=== PATIENT | female | born 1960 | race Caucasian/White ===

== ENCOUNTER → 2018-10-06 | Outpatient (CLI) | payer BC, MEDICARE ==
--- NOTE | 2018-10-06 21:12 | CRLCT ---
INDICATION: Followup pulmonary nodules. TECHNIQUE: Noncontrast axial images with sagittal and coronal reconstructions. COMPARISON: 04/12/2018. FINDINGS: Lungs: Minimal biapical scarring and paraseptal type emphysema. There are a few small (less than 6 mm average diameter) noncalcified subpleural and fissural pulmonary nodules which are stable. These are seen in the right lung on axial images 21, 43, 53, 58, and 70. A stable noncalcified pulmonary nodule is also seen in the left lung on axial image 48, which measures 4 mm. There are no new or enlarging pulmonary nodules. Remainder of the chest: Normal heart size. No pericardial effusion. Normal caliber thoracic aorta. No lymphadenopathy by size criteria. Upper abdomen: No acute abnormality. Bones: No acute abnormality. IMPRESSION: Stable small (less than 6 mm) pulmonary nodules as described above. No new or enlarging pulmonary nodules. Please note that all CT scans at this facility use dose modulation, iterative reconstruction, and/or weight-based dosing when appropriate to reduce radiation dose to as low as reasonably achievable. Dictated by Panda Farias MD @ Oct 06 2018 9:10PM Signed by Dr. Panda Farias @ Oct 06 2018 9:10PM
== END | disposition home or self-care (01) ==
LOC: JP.CT 10:07
PROVIDERS: ATTEND Family Medicine
DX: Z09 Encounter for follow-up examination after completed treatment for conditions other than malignant neoplasm (principal); R91.8 Other nonspecific abnormal finding of lung field; Z87.891 Personal history of nicotine dependence
CPT/HCPCS: 71250

== ENCOUNTER 2018-10-19 21:34 | Emergency (ER) | payer BC, MEDICARE ==
[2018-10-19 23:05] VITALS: BP 135/71
[2018-10-19] MEDS ORDERED: cefTRIAXone 1 GM, Lidocaine 1% 2.1 ML IM ONE ×2 (23:49)
--- NOTE | 2018-10-19 23:49 | EDM.PDOC ---
ED HPI GENERAL MEDICAL PROBLEM - General Chief Complaint: ENT Problem Stated Complaint: ILLNESS Time Seen by Provider: 10/19/18 23:49 Source of Information: Reports: Patient History Limitations: Reports: No Limitations - History of Present Illness INITIAL COMMENTS - FREE TEXT/NARRATIVE: pt arrived with a fever and a sore throat. She has been ill for 32 days. Onset: Other ( 2 days ago) Duration: Hour(s): Location: Reports: Neck Associated Symptoms: Reports: Fever/Chills, Loss of Appetite, Other ( body aches ) Generalized Pain Score (Numeric/FACES): 7 - Related Data Allergies Allergy/AdvReac Type Severity Reaction Status Date / Time phenytoin sodium Allergy Dizziness Verified 10/19/18 23:15 [From Dilantin] phenytoin sodium extended Allergy Dizziness Verified 10/19/18 23:15 [From Dilantin] silver sulfadiazine Allergy Pain Verified 10/19/18 23:15 [From Silvadene] Sulfa (Sulfonamide Allergy Rash Verified 10/19/18 23:15 Antibiotics) leelee Allergy Pain Uncoded 10/19/18 23:15 Home Meds: Home Meds Acetaminophen with Codeine [Acetaminophen-Cod #3] 1 each PO Q4HR PRN 03/11/13 [ History] Ascorbic Acid [C-1000] 1,000 mg PO DAILY 03/11/13 [History] Aspirin [Aspirin EC] 650 mg PO Q4HR PRN 03/11/13 [History] Calcium Carbonate- Vitamin D 1 tab PO DAILY 03/11/13 [History] Ibuprofen [Motrin] 800 mg PO TID PRN 03/11/13 [History] Loratadine [Claritin] 10 mg PO DAILY 03/11/13 [History] Methocarbamol [Robaxin] 500 mg PO Q12HR PRN 03/11/13 [History] Phenylephrine HCl [Non-Pseudo Sinus Decongestant] 10 mg PO DAILY PRN 03/11/13 [ History] buPROPion HCl [Wellbutrin Sr] 150 mg PO BID 03/11/13 [History] guaiFENesin [Guaifenesin] 400 mg PO DAILY PRN 03/11/13 [History] Docusate Sodium [Colace] 100 mg PO ASDIRECTED PRN 01/13/14 [History] Vitamin B Complex [B Complex] 1 tab PO DAILY 10/19/18 [History] Past Medical History HEENT History: Reports: Impaired Vision Cardiovascular History: Reports: Other (See Below) Other Cardiovascular History: mitral valve prolapse 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: lump ectomy left breast Musculoskeletal History: Reports: Back Pain, Chronic, Fracture, Other (See Below ) Other Musculoskeletal History: rods in low back - Infectious Disease History Infectious Disease History: Reports: C-Difficile, Measles, Mumps - Past Surgical History Female Surgical History: Reports: Section, Hysterectomy Social & Family History - Family History Family Medical History: Noncontributory - Tobacco Use Smoking Status *Q: Never Smoker - Caffeine Use Caffeine Use: Reports: Coffee - Recreational Drug Use Recreational Drug Use: No ED ROS ENT - Review of Systems Review Of Systems: See Below Constitutional: Reports: Fever, Chills HEENT: Reports: Throat Pain, Throat Swelling Respiratory: Reports: No Symptoms Cardiovascular: Reports: No Symptoms Endocrine: Reports: No Symptoms GI/Abdominal: Reports: No Symptoms ED EXAM, ENT - Physical Exam Exam: See Below Text/Narrative:: Pt arrived with a sore throat and a fever. She has been ill for 2 days. Exam Limited By: No Limitations General Appearance: Alert, Anxious, Moderate Distress Ears: Normal TMs Nose: Normal Inspection Mouth/Throat: Other ( red inflamed) Head: Atraumatic Neck: Lymphadenopathy (R), Lymphadenopathy (L) Respiratory/Chest: No Respiratory Distress Cardiovascular: Regular Rate, Rhythm GI/Abdominal: Soft, Non-Tender Course - Vital Signs Last Recorded V/S: Last Vital Signs Temp 38.6 C H 10/19/18 23:04 Pulse 105 H 10/19/18 23:04 Resp 18 10/19/18 23:04 BP 135/71 10/19/18 23:04 Pulse Ox 95 10/19/18 23:04 - Orders/Labs/Meds Meds: Medications Discontinued Medications Generic Name Dose Route Start Last Admin Trade Name Declanq PRN Reason Stop Dose Admin Ceftriaxone Sodium 1 gm/ 0 gm 10/19/18 23:49 10/19/18 23:54 Lidocaine HCl 2.1 ml IM 10/19/18 23:50 1 inj ONETIME ONE Administration - Re-Assessments/Exams Free Text/Narrative Re-Assessment/Exam: 10/19/18 23:59 pt arrived with a sore throat looking quite ill. Pt was given rocephen 1 gm. Departure - Departure Time of Disposition: 23:50 Disposition: Home, Self-Care 01 Condition: Fair Clinical Impression: Streptococcal pharyngitis - Discharge Information Instructions: Pharyngitis, [id number] Referrals: Freddie Bartlett MD [Primary Care Provider] - Forms: ED Department Discharge Care Plan Goals: push fluids, tylenol and motrin for body aches, amoxicillin 500mg tid for 10 days.
== END 2018-10-20 00:15 | disposition home or self-care (01) ==
LOC: JP.ED 21:34
DX: J02.0 Streptococcal pharyngitis (principal); H54.7 Unspecified visual loss; I34.1 Nonrheumatic mitral (valve) prolapse; M54.9 Dorsalgia, unspecified; G89.29 Other chronic pain; Z79.82 Long term (current) use of aspirin; Z79.899 Other long term (current) drug therapy; Z88.2 Allergy status to sulfonamides; Z91.09 Other allergy status, other than to drugs and biological substances
CPT/HCPCS: 87430; 96372; 99283; J0696; J2001

== ENCOUNTER 2021-02-09 19:13 | Emergency (ER) | payer BC ==
--- NOTE | 2021-02-09 21:42 | EDM.PDOC ---
ED HPI GENERAL MEDICAL PROBLEM - General Chief Complaint: General Stated Complaint: ACHES,COUGH, LOW GRADE TEMP,CONGESTION Time Seen by Provider: 02/09/21 20:22 Source of Information: Reports: Patient History Limitations: Reports: No Limitations - History of Present Illness INITIAL COMMENTS - FREE TEXT/NARRATIVE: Presents emergency room today secondary to symptoms of body aches cough fatigue fevers and chills mild headache stuffy nose and sore throat. She states that her temperature today was 100.3 and has been running about that last several days symptoms started on Thursday she has been using Tylenol and cold and cough medication [id number] PMH--depression, chronic pain Meds--wellbutrin, ibuprofen prn, T-3 prn, methocarbonal prn, MVI, vit D Allergies--dilantin, sulfa, amtriptylin Denies tob/etoh/drug use No known COVID illness nor has she received the COVID immunization Generalized Pain Score (Numeric/FACES): 5 - Related Data Allergies Allergy/AdvReac Type Severity Reaction Status Date / Time phenytoin sodium Allergy Dizziness Verified 10/19/18 23:15 [From Dilantin] phenytoin sodium extended Allergy Dizziness Verified 10/19/18 23:15 [From Dilantin] silver sulfadiazine Allergy Pain Verified 10/19/18 23:15 [From Silvadene] Sulfa (Sulfonamide Allergy Rash Verified 10/19/18 23:15 Antibiotics) leelee Allergy Pain Uncoded 10/19/18 23:15 Home Meds: Home Meds Acetaminophen with Codeine [Acetaminophen-Cod #3] 1 each PO Q4HR PRN 03/11/13 [History] Ascorbic Acid [C-1000] 1,000 mg PO DAILY 03/11/13 [History] Aspirin [Aspirin EC] 650 mg PO Q4HR PRN 03/11/13 [History] Calcium Carbonate- Vitamin D 1 tab PO DAILY 03/11/13 [History] Ibuprofen [Motrin] 800 mg PO TID PRN 03/11/13 [History] Loratadine [Claritin] 10 mg PO DAILY 03/11/13 [History] Phenylephrine HCl [Non-Pseudo Sinus Decongestant] 10 mg PO DAILY PRN 03/11/13 [History] buPROPion HCL [Wellbutrin Sr] 150 mg PO BID 03/11/13 [History] guaiFENesin [Guaifenesin] 400 mg PO DAILY PRN 03/11/13 [History] methocarbamoL [Robaxin] 500 mg PO Q12HR PRN 03/11/13 [History] Docusate Sodium [Colace] 100 mg PO ASDIRECTED PRN 01/13/14 [History] Vitamin B Complex [B Complex] 1 tab PO DAILY 10/19/18 [History] Past Medical History HEENT History: Reports: Impaired Vision Cardiovascular History: Reports: Other (See Below) Other Cardiovascular History: mitral valve prolapse 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: lump ectomy left breast Musculoskeletal History: Reports: Back Pain, Chronic, Fracture, Other (See Below) Other Musculoskeletal History: rods in low back - Infectious Disease History Infectious Disease History: Reports: C-Difficile, Measles, Mumps - Past Surgical History Female Surgical History: Reports: Section, Hysterectomy Social & Family History - Family History Family Medical History: No Pertinent Family History - Tobacco Use Tobacco Use Status *Q: Never Tobacco User - Caffeine Use Caffeine Use: Reports: Coffee, Soda, Tea ED ROS GENERAL - Review of Systems Review Of Systems: Comprehensive ROS is negative, except as noted in HPI. Constitutional: Reports: Fever, Chills, Fatigue, Decreased Appetite HEENT: Reports: Rhinitis, Sinus Problem, Throat Pain Respiratory: Reports: Cough Cardiovascular: Reports: No Symptoms GI/Abdominal: Reports: No Symptoms ED EXAM, GENERAL - Physical Exam Exam: See Below Exam Limited By: No Limitations General Appearance: Alert, WD/WN, No Apparent Distress Eye Exam: Bilateral Eye: EOMI, Normal Inspection, PERRL Ears: Normal External Exam, Normal Canal, Hearing Grossly Normal Nose: Normal Inspection Throat/Mouth: Normal Inspection, Normal Lips, Normal Oropharynx, Normal Voice, No Airway Compromise Head: Atraumatic, Normocephalic Neck: Normal Inspection, Supple, Non-Tender, Full Range of Motion Respiratory/Chest: No Respiratory Distress, Lungs Clear, Normal Breath Sounds Cardiovascular: Normal Peripheral Pulses, Regular Rate, Rhythm, No Edema, No Murmur Peripheral Pulses: 2+: Radial (L), Radial (R) GI/Abdominal: Normal Bowel Sounds, Soft, Non-Tender (Female) Exam: Deferred Rectal (Female) Exam: Deferred Back Exam: Normal Inspection, Full Range of Motion Extremities: Normal Inspection, Normal Range of Motion, Normal Capillary Refill Neurological: Alert, Oriented, Normal Cognition, No Motor/Sensory Deficits Psychiatric: Normal Affect, Normal Mood Skin Exam: Warm, Dry, Intact, Normal Color Course - Vital Signs Text/Narrative:: 2199--received call from lab regarding + COVID result 2214--in room to discuss with patient and spouse at bedside days ER findings. Patient with diagnosis of Covid without any hypoxia or symptoms of concern requiring admission at this time. Did discuss with patient 10 to 14-day home quarantine self-isolation. Also did discuss contact tracing that anybody that she has been in close contact with will need to be on home quarantine self- isolation for the next 5 to 7 days after last contact and then may receive testing for clearance. Will discharge with antiemetic also did discuss with her use of ibuprofen and acetaminophen for any fevers chills body aches or discomfort. And recommendation to ensure that she is drinking plenty of fluids. Patient verbalized understanding agree with plan of care ready for discharge Last Recorded V/S: Last Vital Signs Temp 97.3 F 02/09/21 20:01 Pulse 94 02/09/21 22:26 Resp 20 02/09/21 22:26 BP 143/82 H 02/09/21 22:26 Pulse Ox 96 02/09/21 22:26 - Orders/Labs/Meds Orders: Active Orders 24 hr Category Date Time Status CULTURE STREP A CONFIRMATION [RM] Stat Lab 02/09/21 21:05 Results STREP SCRN A RAPID W CULT CONF [RM] Stat Lab 02/09/21 21:05 Results Isolation [COMM] Routine Oth 02/09/21 20:39 Ordered Labs: Laboratory Tests 02/09/21 Range/Units 21:05 SARS-CoV-2 RNA (RUSTY) Positive H (NEGATIVE) Departure - Departure Time of Disposition: 22:54 Disposition: Home, Self-Care 01 Condition: Good Clinical Impression: COVID-19 - Discharge Information *PRESCRIPTION DRUG MONITORING PROGRAM REVIEWED*: Not Applicable *COPY OF PRESCRIPTION DRUG MONITORING REPORT IN PATIENT MGAI: Not Applicable Instructions: How to Wear and Take Off Your Mask - [facility] [place] (08/23/2020), 10 Things You Can Do to Manage Your COVID-19 Symptoms at Home - [facility] [place] (11/23/2019), COVID-19 Frequently Asked Questions Referrals: Freddie Bartlett MD [Primary Care Provider] - Forms: ED Department Discharge Additional Instructions: Ensure that you are drinking plenty of fluidswater, juices, sports drinks of choice to stay well-hydrated other options include soup, Jell-O, and popsicles. When you are feeling better your appetite will return Provided you a prescription for ondansetron (Zofran) to use as labeled for any nausea or vomiting. Additional medications for symptom management include acetaminophen (Tylenol) and/or B Profen (Motrin, Advil) use as per [id number] label Contact your primary care provider via telephone for any further concerns. Do not go into the clinic without first contacting them to notify of your Covid diagnosis. If you should have worsening symptoms then please return to the emergency room for further evaluation Note that you are on a 10 to 14-day home quarantine/self isolation. You should not go out to any public places nor should you have anybody into your home secondary to having a Covid positive diagnosis as per current public health guidelines. It is recommended that anybody that you have had close contact with in the last week should be notified of your Covid diagnosis in 5 to 7 days after your last contact with him be tested for Covid. Would have to remain in isolation home quarantine until they have met that timeframe in order to have proper Covid testing to rule out infection Sepsis Event Note (ED) - Evaluation Sepsis Screening Result: No Definite Risk - Focused Exam Vital Signs: Vital Signs Temp Pulse Resp BP Pulse Ox 02/09/21 22:26 94 20 143/82 H 96 02/09/21 20:01 97.3 F 80 20 151/93 H 98 - My Orders Last 24 Hours: My Active Orders 02/09/21 20:39 Isolation [COMM] Routine 02/09/21 21:05 CULTURE STREP A CONFIRMATION [RM] Stat STREP SCRN A RAPID W CULT CONF [RM] Stat - Assessment/Plan Last 24 Hours: My Active Orders 02/09/21 20:39 Isolation [COMM] Routine 02/09/21 21:05 CULTURE STREP A CONFIRMATION [RM] Stat STREP SCRN A RAPID W CULT CONF [RM] Stat
[2021-02-09 22:27] VITALS: BP 143/82; PULSE 94
== END 2021-02-09 23:09 | disposition home or self-care (01) ==
LOC: JP.ED 19:13
DX: U07.1 COVID-19 (principal); Z88.2 Allergy status to sulfonamides; Z88.8 Allergy status to other drugs, medicaments and biological substances; Z79.82 Long term (current) use of aspirin
CPT/HCPCS: 87081; 87804; 87804-59; 87880-QW; 99283; U0002

== ENCOUNTER 2021-02-12 11:46 | Emergency (ER) | payer BC ==
--- NOTE | 2021-02-12 13:40 | EDM.PDOC ---
ED HPI GENERAL MEDICAL PROBLEM - General Chief Complaint: General Stated Complaint: COVID POS-NOT GETTING BETTER Time Seen by Provider: 02/12/21 13:40 Source of Information: Reports: Patient, Family History Limitations: Reports: No Limitations - History of Present Illness INITIAL COMMENTS - FREE TEXT/NARRATIVE: pt has covid for the second time. She has been ill for 4-5 days. She is coughing. She does have the sensation of sob. Her o2 sats are in the 94 to 95 range. Onset: Gradual, Other (last 4-5 days. ) Duration: Hour(s): Location: Reports: Chest, Generalized, Other (pt feels the body aches is better today. ) Associated Symptoms: Reports: Loss of Appetite, Malaise, Shortness of Breath, Other (o2 sats are good. ) - Related Data Allergies Allergy/AdvReac Type Severity Reaction Status Date / Time phenytoin sodium Allergy Dizziness Verified 02/12/21 11:53 [From Dilantin] phenytoin sodium extended Allergy Dizziness Verified 02/12/21 11:53 [From Dilantin] silver sulfadiazine Allergy Pain Verified 02/12/21 11:53 [From Silvadene] Sulfa (Sulfonamide Allergy Rash Verified 02/12/21 11:53 Antibiotics) leelee Allergy Pain Uncoded 02/12/21 11:53 Home Meds: Home Meds Acetaminophen with Codeine [Acetaminophen-Cod #3] 1 each PO Q4HR PRN 03/11/13 [History] Ascorbic Acid [C-1000] 1,000 mg PO DAILY 03/11/13 [History] Aspirin [Aspirin EC] 650 mg PO Q4HR PRN 03/11/13 [History] Calcium Carbonate- Vitamin D 1 tab PO DAILY 03/11/13 [History] Ibuprofen [Motrin] 800 mg PO TID PRN 03/11/13 [History] Loratadine [Claritin] 10 mg PO DAILY 03/11/13 [History] Phenylephrine HCl [Non-Pseudo Sinus Decongestant] 10 mg PO DAILY PRN 03/11/13 [History] buPROPion HCL [Wellbutrin Sr] 150 mg PO BID 03/11/13 [History] guaiFENesin [Guaifenesin] 400 mg PO DAILY PRN 03/11/13 [History] methocarbamoL [Robaxin] 500 mg PO Q12HR PRN 03/11/13 [History] Docusate Sodium [Colace] 100 mg PO ASDIRECTED PRN 01/13/14 [History] Vitamin B Complex [B Complex] 1 tab PO DAILY 10/19/18 [History] Past Medical History HEENT History: Reports: Impaired Vision Cardiovascular History: Reports: Other (See Below) Other Cardiovascular History: mitral valve prolapse 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 Musculoskeletal History: Reports: Back Pain, Chronic, Fracture, Other (See Below) Other Musculoskeletal History: rods in low back - Infectious Disease History Infectious Disease History: Reports: C-Difficile, Measles, Mumps, Novel Coronavirus - Past Surgical History Female Surgical History: Reports: Section, Hysterectomy Social & Family History - Family History Family Medical History: No Pertinent Family History - Tobacco Use Tobacco Use Status *Q: Former Tobacco User Used Tobacco, but Quit: Yes Month/Year Tobacco Last Used: 15 years - Caffeine Use Caffeine Use: Reports: Coffee, Soda - Recreational Drug Use Recreational Drug Use: No ED ROS GENERAL - Review of Systems Review Of Systems: See Below Constitutional: Reports: Malaise, Decreased Appetite HEENT: Reports: No Symptoms Respiratory: Reports: Shortness of Breath, Other (pt has o2 sats in the 94-6) Cardiovascular: Reports: No Symptoms (range) Endocrine: Reports: No Symptoms GI/Abdominal: Reports: No Symptoms : Reports: No Symptoms Musculoskeletal: Reports: No Symptoms Skin: Reports: No Symptoms Neurological: Reports: No Symptoms Psychiatric: Reports: No Symptoms Hematologic/Lymphatic: Reports: No Symptoms ED EXAM, GENERAL - Physical Exam Exam: See Below Free Text/Narrative:: pt arrived concerned that she had the sensation she was sob. Her sats are maintaining. She is concerned because her is in [place] on a resperator. Exam Limited By: No Limitations General Appearance: Alert, No Apparent Distress, Anxious Ears: Normal TMs Nose: Normal Inspection Throat/Mouth: Normal Inspection Head: Atraumatic Neck: Normal Inspection Respiratory/Chest: No Respiratory Distress Cardiovascular: Regular Rate, Rhythm GI/Abdominal: Soft, Non-Tender (Female) Exam: Deferred Rectal (Female) Exam: Deferred Back Exam: Normal Inspection Extremities: Normal Inspection Course - Vital Signs Last Recorded V/S: Last Vital Signs Temp 36.3 C 02/12/21 11:48 Pulse 85 02/12/21 11:48 Resp 16 02/12/21 11:48 BP 130/78 02/12/21 11:48 Pulse Ox 97 02/12/21 11:48 - Orders/Labs/Meds Labs: Laboratory Tests 02/12/21 02/12/21 Range/Units 12:49 12:49 WBC 6.3 (4.5-11.0) K/uL RBC 4.25 (3.30-5.50) M/uL Hgb 12.5 (12.0-15.0) g/dL Hct 38.1 (36.0-48.0) % MCV 90 (80-98) fL MCH 29 (27-31) pg MCHC 33 (32-36) % Plt Count 271 (150-400) K/uL Neut % (Auto) 81.9 H (36-66) % Lymph % (Auto) 11.4 L (24-44) % [place] % (Auto) 6.2 H (2-6) % Eos % (Auto) 0.2 L (2-4) % Baso % (Auto) 0.3 (0-1) % Sodium 137 L (140-148) mmol/L Potassium 3.7 (3.6-5.2) mmol/L Chloride 103 (100-108) mmol/L Carbon Dioxide 27 (21-32) mmol/L Anion Gap 10.7 (5.0-14.0) mmol/L BUN 11 (7-18) mg/dL Creatinine 0.6 (0.6-1.0) mg/dL Est Cr Clr Drug Dosing 81.45 mL/min Estimated GFR (MDRD) > 60 (>60) Glucose 112 H (74-106) mg/dL Calcium 8.1 L (8.5-10.1) mg/dL Total Bilirubin 0.2 (0.2-1.0) mg/dL AST 23 (15-37) U/L ALT 46 (12-78) U/L Alkaline Phosphatase 92 (46-116) U/L Total Protein 7.1 (6.4-8.2) g/dL Albumin 3.3 L (3.4-5.0) g/dL Globulin 3.8 H (2.3-3.5) g/dL Albumin/Globulin Ratio 0.9 L (1.2-2.2) - Re-Assessments/Exams Free Text/Narrative Re-Assessment/Exam: 02/12/21 13:45 pt had normal electrolytes and a wbc in the 6000 range. She is maintaining good o2 sats. Departure - Departure Time of Disposition: 13:39 Disposition: Home, Self-Care 01 Condition: Fair Clinical Impression: COVID-19 - Discharge Information Instructions: or Just Had a Baby? Take These Steps to Protect Yourself From COVID-19 - CDC (11/07/2020) Referrals: PCP,Unknown [Primary Care Provider] - Forms: ED Department Discharge Sepsis Event Note (ED) - Focused Exam Vital Signs: Vital Signs Temp Pulse Resp BP Pulse Ox 02/12/21 11:48 36.3 C 85 16 130/78 97
[2021-02-12 13:55] VITALS: BP 119/75; PULSE 70
== END 2021-02-12 13:56 | disposition home or self-care (01) ==
LOC: JP.ED 11:46
DX: U07.1 COVID-19 (principal); Z87.891 Personal history of nicotine dependence; Z79.82 Long term (current) use of aspirin; Z79.899 Other long term (current) drug therapy; Z88.8 Allergy status to other drugs, medicaments and biological substances; Z88.2 Allergy status to sulfonamides
CPT/HCPCS: 36415; 80053; 85025; 99282; 99283

== ENCOUNTER 2021-10-02 19:34 | Emergency (ER) | payer BC ==
[2021-10-02] MEDS ORDERED: Sodium Chloride 0.9% 10 ML Syringe FLUSH PRN (19:42)
[2021-10-02] MEDS ORDERED: Ibutilide 1 MG/10 ML Vial IVPUSH ONE (19:48)
[2021-10-02] MEDS ORDERED: Adenosine 6 MG/2 ML SDV IVPUSH ONE (19:52)
[2021-10-02 20:18] VITALS: BP 118/85; PULSE 132
[2021-10-02 20:19] LABS: TROPONIN I HIGH SENSITIVITY 16.4 pg/mL (<=60.3)
== END 2021-10-02 21:09 | disposition home or self-care (01) ==
LOC: JP.ED 19:34
DX: I48.92 Unspecified atrial flutter (principal); Z88.8 Allergy status to other drugs, medicaments and biological substances; Z88.2 Allergy status to sulfonamides; Z91.048 Other nonmedicinal substance allergy status; Z79.82 Long term (current) use of aspirin; Z79.899 Other long term (current) drug therapy
CPT/HCPCS: 36415; 71045; 80053; 84443; 84484; 85025; 93005; 93010; 96374; 96375; 99283; 99285; J0153; J1742; J3490

== ENCOUNTER 2022-03-01 17:40 | Observation (INO) | payer BC ==
[2022-03-01] MEDS ORDERED: HYDROmorphone 1 MG/ML Syringe ONE (18:50)
[2022-03-01] MEDS ORDERED: Ondansetron 4 MG/2 ML SDV ONE (18:50)
[2022-03-01] MEDS ORDERED: Lactated Ringers 1,000 ML IV ONE (18:50)
[2022-03-01] MEDS ORDERED: HYDROmorphone 0.5 MG/0.5 ML Syringe ONE (18:50)
[2022-03-01] MEDS ORDERED: Iopamidol 612 MG/ML 100 ML Bottle IV SCH (20:00)
[2022-03-02] MEDS ORDERED: Acetaminophen/HYDROcodone 325-5 MG Tab ONE (00:30)
[2022-03-02] MEDS ORDERED: Sodium Chloride 0.9% 1,000 ML IV ONE (06:23)
[2022-03-02] MEDS ORDERED: HYDROmorphone 0.5 MG/0.5 ML Syringe ONE (09:00)
[2022-03-02] MEDS ORDERED: Pantoprazole 40 MG Vial ONE (09:00)
[2022-03-02] MEDS ORDERED: Acetaminophen 500 MG Tab ONE (09:00)
[2022-03-02] MEDS ORDERED: oxyCODONE 5 MG Tab ONE ×2 (09:00)
[2022-03-02] MEDS ORDERED: Lactated Ringers 1,000 ML IV ONE (13:00)
== END 2022-03-03 20:20 | disposition home or self-care (01) ==
LOC: JP.ED 17:40 → JP.ZCENSUS 03-02 05:00
PROVIDERS: ADMIT Student in an Organized Health Care Education/Training Program; ATTEND Student in an Organized Health Care Education/Training Program
DX: K80.12 Calculus of gallbladder with acute and chronic cholecystitis without obstruction (principal); E78.5 Hyperlipidemia, unspecified; Z79.899 Other long term (current) drug therapy; Z88.8 Allergy status to other drugs, medicaments and biological substances; Z88.2 Allergy status to sulfonamides; Z87.891 Personal history of nicotine dependence; Z20.822 Contact with and (suspected) exposure to COVID-19
CPT/HCPCS: 47562; 74177; 76705; 93005; A9270; C9113; J1170; J2405; J7030; J7120